=== PATIENT | male | born 1995 | race Two or more races ===

== ENCOUNTER 2020-11-06 23:13 | Emergency (ER) | payer SELFPAY ==
--- NOTE | 2020-11-06 23:24 | NUR ---
Pt not in waiting room, was seen leaving ER on a scooter.
== END 2020-11-06 23:29 | disposition left against medical advice (07) ==
LOC: ER 23:15
DX: Z53.21 Procedure and treatment not carried out due to patient leaving prior to being seen by health care provider (principal)

== ENCOUNTER 2021-01-25 23:18 | Emergency (ER) | payer SELFPAY ==
--- NOTE | 2021-01-26 00:25 | NUR ---
Called patient to be triaged but patient would not wake up.
--- NOTE | 2021-01-26 00:49 | NUR ---
Patient was woken up by [facility] and stated "I don't want to be seen anymore." Patient left with being triaged or seen by ERMD.
[2021-01-26] MEDS ORDERED: HYDR-4209 PO (01:45)
[2021-01-26] MEDS ORDERED: SULF1TAB48 PO (01:45)
== END 2021-01-26 00:51 | disposition left against medical advice (07) ==
LOC: ER 23:29
DX: Z53.21 Procedure and treatment not carried out due to patient leaving prior to being seen by health care provider (principal)

== ENCOUNTER 2021-01-26 01:18 | Emergency (ER) | payer MEDICAID ==
[~2021-01-26] VITALS: Ht 175.3 cm; Wt 77.1 kg
--- NOTE | 2021-01-26 01:30 | NUR ---
Patient c/o bilateral foot pain x1 week.
--- NOTE | 2021-01-26 01:31 | NUR ---
Dr. Mendenhall on bedside for MSE.
[2021-01-26] MEDS ORDERED: SULFAMETH/TRIMETH 800/160 MG TABLET PO ONE (01:45)
[2021-01-26] MEDS ORDERED: SULF1TAB48 PO (01:45)
[2021-01-26] MEDS ORDERED: HYDROCODONE/APAP 10-325 MG TABLET PO ONE (01:45)
[2021-01-26] MEDS ORDERED: HYDR-4209 PO (01:45)
[2021-01-26] MEDS ORDERED: ONDANSETRON ODT 4 MG TAB.RAPDIS SL ONE (01:45)
[2021-01-26] MEDS ORDERED: FLUCONAZOLE 100 MG TABLET PO ONE (01:45)
[2021-01-26] MEDS ORDERED: ONDANSETRON ODT 4 MG TAB.RAPDIS ONE (01:57)
[2021-01-26] MEDS ORDERED: SULFAMETH/TRIMETH 800/160 MG TABLET ONE (01:58)
[2021-01-26] MEDS ORDERED: FLUCONAZOLE 100 MG TABLET ONE (01:58)
[2021-01-26] MEDS ORDERED: HYDROCODONE/APAP 10-325 MG TABLET ONE (01:58)
--- NOTE | 2021-01-26 02:29 | NUR ---
Patient discharged to home in stable condition. Written and verbal after care instructions given. Patient verbalizes understanding of instructions. Stressed follow up or return to ER for worsening s/s. Patient ambulated fr the ER with steady gait. All belongings with patient.
[2021-01-26 02:32] VITALS: BP 150/80
== END 2021-01-26 02:32 | disposition home or self-care (01) ==
LOC: ER 01:32
DX: B35.3 Tinea pedis (principal); Z59.02 Unsheltered homelessness; Z88.0 Allergy status to penicillin; R03.0 Elevated blood-pressure reading, without diagnosis of hypertension
CPT/HCPCS: A4663; Q0162

== ENCOUNTER 2021-01-28 01:48 | Emergency (ER) | payer SELFPAY ==
[~2021-01-28 01:48] MED LIST: HYDR-4209 PO; SULF1TAB48 PO
--- NOTE | 2021-01-28 02:00 | NUR ---
Called multiple times in waiting room. Patient left without being triaged.
== END 2021-01-28 06:06 | disposition left against medical advice (07) ==
LOC: ER 01:50
DX: Z53.21 Procedure and treatment not carried out due to patient leaving prior to being seen by health care provider (principal)

== ENCOUNTER 2021-03-07 02:35 | Emergency (ER) | payer MEDICAID ==
[~2021-03-07] VITALS: Ht 175.3 cm; Wt 54.4 kg
--- NOTE | 2021-03-07 03:40 | NUR ---
Pt triaged, instructed to wait in waiting room until room is available.
--- NOTE | 2021-03-07 06:22 | NUR ---
Pt not in waiting room.
== END 2021-03-07 06:24 | disposition left against medical advice (07) ==
LOC: ER 02:40
DX: Z53.21 Procedure and treatment not carried out due to patient leaving prior to being seen by health care provider (principal)

== ENCOUNTER 2021-11-24 23:20 | Emergency (ER) | payer MEDICAID, OTHER ==
[~2021-11-24] VITALS: Ht 175.3 cm; Wt 54.4 kg
--- NOTE | 2021-11-24 23:56 | NUR ---
Dr. Schmidt with patient. MSE in progress.
--- NOTE | 2021-11-25 00:01 | NUR ---
Patient does not wish to proceed with medical care recommended by Dr. Schmidt. Patient given information related to possible complications, up to and including , which could occur as a result of leaving the hospital at this time. Patient verbalizes understanding of risks involved due to leaving against medical advice. Patient didnt sign AMA form.
[2021-11-25 00:03] VITALS: BP 135/91
== END 2021-11-25 00:01 | disposition left against medical advice (07) ==
LOC: ER 23:20
DX: M79.671 Pain in right foot (principal); Z59.02 Unsheltered homelessness; Z88.0 Allergy status to penicillin; R03.0 Elevated blood-pressure reading, without diagnosis of hypertension
CPT/HCPCS: A4663